=== PATIENT | female | born 1930 | race African-American/Black ===

== ENCOUNTER 2018-05-09 03:22 | Observation (INO) ==
[2018-05-09 04:07] LABS: Basophils % 0.5 % (0.0-0.8); Eosinophils # 0.1 10*3/uL (0.0-0.87); Eosinophils % 1.9 % (0.00-10.9); Hematocrit 39.4 VOL% (35.7-47.0); Hemoglobin 12.4 GM/DL (12.0-16.0); Immature Granulocytes % 0.4 %; Immature Granulocytes Absolute 0.02 #; Lymphocytes % 35.2 % (21.3-54.2); Mean Corpuscular HGB Conc 31.5 GM/DL (32-36); Mean Corpuscular Hemoglobin 28 PG (27-34); Mean Corpuscular Volume 87.4 FL (87-102); Mean Platelet Volume 10.5 FL (9.6-12.0); Monocytes # 0.2 10*3/uL (0.11-0.8); Neutrophils # 3.4 10*3/uL (1.4-7.4); Platelet Count 269 T/CUMM (130-400); Red Blood Count 4.51 MC/CUMM (3.8-5.5); Red Cell Distribution Width 15.1 % (9.3-17.3); White Blood Count 5.7 T/CUMM (4-12)
[2018-05-09 04:09] LABS: Apearance,Urine CLEAR (Clear); Bilirubin,Urine Negative (Negative); Blood, Urine Negative (Negative); Glucose,Urine (UA) Negative (Negative); Ketones,Urine Negative (Negative); Nitrite,Urine Negative (Negative); Protein,Urine Negative; RBC,Urine 3 /HPF (0-4); Squamous Epithelial Cell,Urine Occasional /HPF (0-10); Urine Color Colorless (Yellow); Urine Specific Gravity 1.005 (1.001-1.035); Urine Urobilinogen < 2.0 EU/DL (0.2-1.0); WBC,Urine 2 /HPF (0-6)
[2018-05-09 04:16] LABS: PT Patient Result 10.5 SECS
[2018-05-09 04:19] LABS: Albumin 3.6 G/DL (3.4-5.0); Bilirubin,Total 0.4 MG/DL (0.2-1.0); Calcium 9.2 MG/DL (8.5-10.1); Osmolality,Calculated 282.5 MOS/KG (273-304); Potassium 4.3 MMOL/L (3.5-5.1); Total Protein 7.8 G/DL (6.4-8.3)
[2018-05-09] MEDS ORDERED: methylPREDNISolone SOD SUC 125 MG/2 ML VIAL IV STA (04:54)
[2018-05-09] MEDS ORDERED: cefTRIAXone 1,000 MG in SODIUM CHLORIDE 0.9% 100 ML IV STA (04:54)
[2018-05-09] MEDS ORDERED: ALBUTEROL/IPRATROPIUM 3 ML NEB RESP TX STA (04:55)
[2018-05-09] MEDS ORDERED: FUROSEMIDE 40 MG/4 ML VIAL IV STA (05:03)
[2018-05-09] MEDS ORDERED: BISACODYL 5 MG TABLET PO PRN (05:58)
[2018-05-09] MEDS ORDERED: ALBUTEROL/IPRATROPIUM 3 ML NEB RESP TX PRN (05:58)
[2018-05-09] MEDS ORDERED: ACETAMINOPHEN 325 MG TABLET PO PRN (05:58)
[2018-05-09] MEDS ORDERED: guaiFENesin/DM ER 600-30 MG TABLET PO PRN (05:58)
[2018-05-09] MEDS ORDERED: ONDANSETRON 4 MG/2 ML VIAL IV PRN (05:58)
[2018-05-09] MEDS ORDERED: tiZANidine 4 MG TABLET PO PRN (06:02)
[2018-05-09] MEDS ORDERED: NICOTINE 21 MG/24 HR PATCH TRANSDERM PRN (08:43)
[2018-05-09] MEDS: ROSUVASTATIN 20 MG TABLET PO SCH (09:18)
[2018-05-09] MEDS: FUROSEMIDE 40 MG TABLET PO SCH (09:18)
[2018-05-09] MEDS: METOPROLOL TARTRATE 25 MG TABLET PO SCH ×2 (09:18→21:15)
[2018-05-09] MEDS: ASPIRIN EC 325 MG TABLET PO SCH (09:18)
[2018-05-09] MEDS: predniSONE 20 MG TABLET PO SCH (09:18)
[2018-05-09] MEDS: ISOSORBIDE MONONITRATE 30 MG TABLET PO SCH (09:18)
[2018-05-09] MEDS: LEVOFLOXACIN 250 MG TABLET PO SCH (09:18)
[2018-05-09] MEDS: ENOXAPARIN 30 MG/0.3 ML SYRINGE SUBCUT SCH (09:18)
[2018-05-09] MEDS: PANTOPRAZOLE 40 MG TABLET PO SCH (09:18)
[2018-05-09] MEDS: BUDESONIDE/FORMOTEROL 160-4.5 INHALER 6 GM INH SCH ×2 (11:15→21:15)
[2018-05-09] MEDS: NICOTINE 21 MG/24 HR PATCH TRANSDERM SCH (14:12)
[2018-05-09] MEDS ORDERED: CYCLOBENZAPRINE 10 MG TABLET PO PRN (18:22)
[2018-05-10 05:34] LABS: Basophils % 0.1 % (0.0-0.8); Hematocrit 35.1 VOL% (35.7-47.0); Hemoglobin 11.2 GM/DL (12.0-16.0); Immature Granulocytes % 0.4 %; Immature Granulocytes Absolute 0.04 #; Lymphocytes # 1.6 10*3/uL (1.4-4.0); Lymphocytes % 17.3 % (21.3-54.2); Mean Corpuscular HGB Conc 31.9 GM/DL (32-36); Mean Corpuscular Hemoglobin 27 PG (27-34); Mean Corpuscular Volume 85.4 FL (87-102); Mean Platelet Volume 10.5 FL (9.6-12.0); Monocytes # 0.7 10*3/uL (0.11-0.8); Neutrophils # 6.7 10*3/uL (1.4-7.4); Neutrophils % 74.2 % (38.7-73.9); Platelet Count 272 T/CUMM (130-400); Red Blood Count 4.11 MC/CUMM (3.8-5.5); Red Cell Distribution Width 14.9 % (9.3-17.3); White Blood Count 9.1 T/CUMM (4-12)
[2018-05-10 06:07] LABS: Calcium 9.2 MG/DL (8.5-10.1); Osmolality,Calculated 277.2 MOS/KG (273-304)
[2018-05-10] MEDS: LEVOFLOXACIN 250 MG TABLET PO SCH (06:22)
[2018-05-10 07:48] VITALS: BP 96/60
[2018-05-10] MEDS: ROSUVASTATIN 20 MG TABLET PO SCH (10:10)
[2018-05-10] MEDS: PANTOPRAZOLE 40 MG TABLET PO SCH (10:10)
[2018-05-10] MEDS: ASPIRIN EC 325 MG TABLET PO SCH (10:10)
[2018-05-10] MEDS: FUROSEMIDE 40 MG TABLET PO SCH (10:10)
[2018-05-10] MEDS: ISOSORBIDE MONONITRATE 30 MG TABLET PO SCH (10:10)
[2018-05-10] MEDS: ENOXAPARIN 30 MG/0.3 ML SYRINGE SUBCUT SCH (10:10)
[2018-05-10] MEDS: predniSONE 20 MG TABLET PO SCH (10:10)
[2018-05-10] MEDS: NICOTINE 21 MG/24 HR PATCH TRANSDERM SCH (10:16)
[2018-05-10] MEDS: METOPROLOL TARTRATE 25 MG TABLET PO SCH (10:16)
[2018-05-10] MEDS: BUDESONIDE/FORMOTEROL 160-4.5 INHALER 6 GM INH SCH (10:23)
== END 2018-05-10 11:30 | disposition home or self-care (01) ==
LOC: EDUNIT# → EDBD → N.ED 03:22 → N.EDINP 03:22 → SUATTDRO 06:04 → N.5E 06:31
PROVIDERS: ADMIT Hospitalist; ATTEND Internal Medicine Geriatric Medicine